=== PATIENT | male | born 1950 | race Caucasian/White ===

== ENCOUNTER 2021-08-29 05:40 | Observation (INO) | payer MEDICARE ==
[~2021-08-29] VITALS: Ht 185.4 cm; Wt 89.8 kg
[~2021-08-29 05:40] MED LIST: ASPIRIN325 MG PO; ASPIRIN81 MG PO; CELEXA40 MG PO; CLARITIN10 MG PO; EFFIENT10 MG PO; FLOMAX 0.4 MG0.4 MG PO; IBUPROFEN800 MG PO; IMDUR ER TAB 3030 MG PO; LEVAQUIN500 MG PO; LEVAQUIN750 MG PO; LOPRESSOR50 MG PO; LORTAB 7.5-3251 EACH PO; METFORMIN HCL500 MG PO; NEURONTIN800 MG PO; NITROGLYCERIN0.4 MG SL; PRAVACHOL40 MG PO; PRILOSEC OTC20 MG PO; TRICOR145 MG PO; VENTOLIN/PROVE0.5 ML INH; VOLTAREN100 GM TP
[2021-08-29 06:04] LABS: HEMOGLOBIN 14.9 gm/dl (14.0-17.5); RED BLOOD COUNT 4.68 M/UL (4.20-5.50); WHITE BLOOD COUNT 7.6 K/UL (4.5-11.0)
--- NOTE | 2021-08-29 10:54 | NUR ---
DURING ADMISSING PATIENT STATES THAT HE IS HAVING SEVERE CHEST PAIN THAT RADIATES DOWN HIS ARM. PATIENT STATES THAT IT HURTS WORSE THAN WHEN HE CAME INTO THE ED. PROVIDER CALLED AND NEW ORDERS GIVEN. PATIENT OTERHWISE STABLE.
[2021-08-29] MEDS ORDERED: PROTONIX 40 MG40 M1 PO (10:56)
[2021-08-29] MEDS ORDERED: VOLTAREN ARTHRI20 GM TP (10:58)
[2021-08-29] MEDS ORDERED: DAILY VITE1 EACH PO (11:04)
[2021-08-29] MEDS ORDERED: CLARITIN 10MG T10 MG PO (11:04)
[2021-08-29] MEDS ORDERED: VITAMIN E90 M1 PO (11:05)
[2021-08-30 06:28] LABS: HEMOGLOBIN 14.1 gm/dl (14.0-17.5); RED BLOOD COUNT 4.47 M/UL (4.20-5.50); WHITE BLOOD COUNT 6.5 K/UL (4.5-11.0)
[2021-08-30 06:50] LABS: BUN/CREATININE RATIO 18 (0-10)
--- NOTE | 2021-08-30 11:31 | NUR ---
REPORT CALLED TO FAUSTO ARROYO AT THIS TIME.
[2021-08-30 13:20] LABS: HEMOGLOBIN 14.2 gm/dl (14.0-17.5); RED BLOOD COUNT 4.43 M/UL (4.20-5.50)
[2021-08-30 13:44] LABS: BUN/CREATININE RATIO 18 (0-10)
[2021-08-30 19:03] LABS: HEMOGLOBIN 15.2 gm/dl (14.0-17.5); RED BLOOD COUNT 4.76 M/UL (4.20-5.50)
[2021-08-30 19:05] LABS: WHITE BLOOD COUNT 9.3 K/UL (4.5-11.0)
[2021-08-30 19:22] LABS: BUN/CREATININE RATIO 16 (0-10)
--- NOTE | 2021-08-31 00:37 | NUR ---
PATIENT IN NONCOMPLIANT WITH MONITORING.
[2021-08-31 04:04] LABS: HEMOGLOBIN 14.6 gm/dl (14.0-17.5); RED BLOOD COUNT 4.49 M/UL (4.20-5.50); WHITE BLOOD COUNT 7.8 K/UL (4.5-11.0)
[2021-08-31 04:39] LABS: BUN/CREATININE RATIO 13 (0-10)
--- NOTE | 2021-08-31 09:08 | NUR ---
PT NON COMPLIANT WITH TELE AND PULSE OX. EXPLAINED IMPORTANCE OF TELE AND PULSE OX WITH VOICED UNDERSTANDING, PT STATES " I HAVE HAD 9 STENTS AND I KNOW MY OWN BODY" AND CONT TO BE NON COMPLIANT. WILL NOTIFIED
[2021-08-31] MEDS ORDERED: ASPIRIN EC81 MG PO (09:55)
[2021-08-31] MEDS ORDERED: AMLODIPINE BESYL5 MG PO (09:55)
== END 2021-08-31 10:50 | disposition home or self-care (01) ==
LOC: ER1 05:40 → CDU 08:20 → MED SURG 4 08:20 → PROG CARE 08-30 11:52
PROVIDERS: Family Medicine; Internal Medicine Cardiovascular Disease; Physician Assistant; ADMIT Internal Medicine Infectious Disease
DX: I25.110 Atherosclerotic heart disease of native coronary artery with unstable angina pectoris (principal); N17.9 Acute kidney failure, unspecified; I12.9 Hypertensive chronic kidney disease with stage 1 through stage 4 chronic kidney disease, or unspecified chronic kidney disease; E11.22 Type 2 diabetes mellitus with diabetic chronic kidney disease; N18.30 Chronic kidney disease, stage 3 unspecified; G89.4 Chronic pain syndrome; I08.3 Combined rheumatic disorders of mitral, aortic and tricuspid valves; I97.190 Other postprocedural cardiac functional disturbances following cardiac surgery; I49.5 Sick sinus syndrome; E11.40 Type 2 diabetes mellitus with diabetic neuropathy, unspecified; J98.11 Atelectasis; E78.5 Hyperlipidemia, unspecified; F32.9 Major depressive disorder, single episode, unspecified; F41.9 Anxiety disorder, unspecified; N40.0 Benign prostatic hyperplasia without lower urinary tract symptoms; J30.2 Other seasonal allergic rhinitis; F17.210 Nicotine dependence, cigarettes, uncomplicated; Z79.899 Other long term (current) drug therapy; Z88.0 Allergy status to penicillin; Z88.8 Allergy status to other drugs, medicaments and biological substances; Z20.822 Contact with and (suspected) exposure to COVID-19; Z95.0 Presence of cardiac pacemaker; Z82.49 Family history of ischemic heart disease and other diseases of the circulatory system; Z95.5 Presence of coronary angioplasty implant and graft
CPT/HCPCS: ECHO; 36415; 71045; 80048; 80053; 82550; 82553; 82962; 83874; 84484; 85025; 85027; 85347; 85610; 93005; 93306; 96374; 96375; 96376; 97161; 99152; 99153; 99285; C1725; C1769; C1874; C1887; C9600; G0378; J0360; J0461; J1644; J2250; J2270; J2405; J3010; J3246; J7030; J7040; Q9965; U0002